=== PATIENT | male | born 1960 | race Caucasian/White ===

== ENCOUNTER → 2018-10-11 | Outpatient (CLI) | payer BC ==
[2018-10-11 11:51] LABS: INR 1.8 (0.8-1.4)
== END ==
LOC: LAB FS 10:56
PROVIDERS: ATTEND Pediatrics
DX: I48.0 Paroxysmal atrial fibrillation (principal)
CPT/HCPCS: 36415; 85610

== ENCOUNTER → 2018-10-31 | Outpatient (CLI) | payer BC ==
--- NOTE | 2018-10-31 10:40 | Diagnostic Imaging Report ---
INDICATION: Knee pain status post injury. COMPARISON: None. FINDINGS: Three views of the right knee joint demonstrate no acute fracture or dislocation. No focal osseous lesions are seen. No significant joint effusion is seen. The surrounding soft tissue structures are unremarkable. There are no radiopaque foreign bodies. IMPRESSION: No acute fractures or dislocations of the right knee joint. Dictated by: Dictated on workstation # [id number]
== END ==
LOC: RAD FS 10:07
PROVIDERS: ATTEND Nurse Practitioner
DX: S83.241A Other tear of medial meniscus, current injury, right knee, initial encounter (principal); Z87.828 Personal history of other (healed) physical injury and trauma
CPT/HCPCS: 73562

== ENCOUNTER → 2018-11-07 | Outpatient (CLI) | payer BC ==
--- NOTE | 2018-11-07 10:28 | Diagnostic Imaging Report ---
PROCEDURE: MRI right joint lower extremity without contrast. TECHNIQUE: Multiplanar, multisequence non contrast-enhanced MRI of the right lower extremity was accomplished. INDICATION: Knee popped while playing golf one week ago, complaining of medial pain and swelling. No prior studies are available for comparison. FINDINGS: There is a large joint effusion. The marrow signal is unremarkable. No geographic marrow lesion or fracture is identified. The PCL is intact. The proximal third fibers of the ACL are poorly visualized and appear to be torn. The medial and lateral collateral ligament complexes are intact. The lateral meniscus is intact. There is a complex tear involving the medial meniscus. Body and posterior horn demonstrate abnormal linear signal with significant truncation of the posterior horn. There may be a displaced fragment towards the notch as well. The extensor mechanism is intact. Articular cartilage appears to be intact. There is some mild subchondral signal noted along the posterior aspect of the medial femoral condyle. IMPRESSION: 1. Large joint effusion. 2. ACL tear. 3. Complex medial meniscus tear. Dictated by: Dictated on workstation # [id number]
== END ==
LOC: RAD 08:55
PROVIDERS: ATTEND Nurse Practitioner
DX: S83.231A Complex tear of medial meniscus, current injury, right knee, initial encounter (principal); S83.511A Sprain of anterior cruciate ligament of right knee, initial encounter; Y93.53 Activity, golf
CPT/HCPCS: 73721

== ENCOUNTER 2018-11-28 11:32 | Outpatient (CLI) | payer BC ==
[~2018-11-28] VITALS: Ht 177.8 cm; Wt 75.4 kg
[2018-11-28] MEDS ORDERED: WARF2.5T82 PO (11:52)
[2018-11-28] MEDS ORDERED: METO200T48 PO (11:52)
[2018-11-28] MEDS ORDERED: WARF1TAB82 PO (11:52)
[2018-11-28] MEDS ORDERED: AMLO10TA7 PO (11:52)
[2018-11-28] MEDS ORDERED: CAND32TA19 PO (11:52)
[2018-11-28] MEDS ORDERED: OMEP20TA7 PO (11:52)
[2018-11-28] MEDS ORDERED: TAMS0.4C98 PO (11:52)
[2018-11-28] MEDS ORDERED: DIGO250T PO (11:52)
[2018-11-28 11:55] VITALS: BP 129/93
== END 2018-11-28 12:29 | disposition home or self-care (01) ==
LOC: PREOP 11:32
PROVIDERS: ATTEND Orthopaedic Surgery
DX: Z01.818 Encounter for other preprocedural examination (principal)
CPT/HCPCS: 87081

== ENCOUNTER 2018-11-30 07:14 | Day surgery (SDC) | payer BC ==
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
[~2018-11-30] VITALS: Ht 177.8 cm; Wt 75.4 kg
[~2018-11-30 07:14] MED LIST: AMLO10TA7 PO; CAND32TA19 PO; DIGO250T PO; METO200T48 PO; OMEP20TA7 PO; TAMS0.4C98 PO; WARF1TAB82 PO; WARF2.5T82 PO
[2018-11-30] MEDS ORDERED: BUPIVACAINE 0.5% 30 ML (SENSORCAINE) VIAL ONE (07:23)
[2018-11-30] MEDS ORDERED: morphine PF (DURAMORPH) 10 MG/10 ML AMP ONE (07:23)
[2018-11-30 07:25] VITALS: BP 150/98
--- NOTE | 2018-11-30 07:31 | Progress Note-Pre Operative ---
Pre-Operative Progress Note H&P Reviewed The H&P was reviewed, patient examined and no changes noted. Date Seen by Provider: Nov 30, 2018 Time Seen by Provider: 07:30 Date H&P Reviewed: Nov 30, 2018 Time H&P Reviewed: 07:30 Pre-Operative Diagnosis: right knee medial meniscus tear and chondromalacia ADRIANNA MENJIVAR MD Nov 30, 2018 07:31
--- NOTE | 2018-11-30 07:32 | Progress Note-Post Operative ---
Post-Operative Progess Note Surgeon (s)/Insulator Helper (s) Surgeon ADRIANNA MENJIVAR MD Insulator Helper: Freeman Bernstein Pre-Operative Diagnosis right knee medial meniscus tear and chondromalacia Post-Operative Diagnosis right knee medial meniscus tear and chondromalacia of the medial femoral condyle Procedure & Operative Findings Date of Procedure 11/30/18 Procedure Performed/Findings right knee arthroscopic partial medial meniscectomy and chondroplasty of medial femoral condyle Anesthesia Type GETA Estimated Blood Loss Estimated blood loss (mL): minimal Specimens/Packing Specimens Removed none Packing: none ADRIANNA MENJIVAR MD Nov 30, 2018 07:31
[2018-11-30] MEDS ORDERED: LACTATED RINGERS 1,000 ML IV PRN (07:34)
[2018-11-30 07:45] LABS: INR 1.3 (0.8-1.4); PROTHROMBIN TIME PATIENT 16.6 SEC (12.2-14.7)
[2018-11-30] MEDS ORDERED: ceFAZolin INJECTION 1,000 MG in WATER (STERILE) FOR INJECTION 10 ML IV ONE (07:45)
[2018-11-30] MEDS ORDERED: fentaNYL INJECTION 100 MCG/2 ML AMP ONE (07:55)
[2018-11-30] MEDS ORDERED: MIDAZOLAM 2 MG/2 ML (VERSED) VIAL ONE ×2 (07:56→07:57)
[2018-11-30] MEDS ORDERED: proPOfol 200 MG/20 ML (DIPRIVAN) VIAL IV ONE ×2 (09:43→09:53)
[2018-11-30] MEDS ORDERED: LIDOCAINE PF 2% 5 ML (XYLOCAINE) VIAL ONE (09:43)
[2018-11-30] MEDS ORDERED: SEVOFLURANE (ULTANE) 15 ML INHAL SOLN ONE ×3 (09:43→10:12)
[2018-11-30] MEDS ORDERED: ONDANSETRON 4 MG/2 ML (SDV) Z0FRAN ONE (09:43)
[2018-11-30] MEDS ORDERED: HYDROcodone/APAP 7.5 MG/325 MG (LORTAB, LORCET PLUS) TABLET PO PRN (09:45)
[2018-11-30] MEDS ORDERED: ONDANSETRON 4 MG/2 ML (SDV) Z0FRAN IVP PRN (10:30)
[2018-11-30] MEDS ORDERED: MEPERIDINE (DEMEROL) INJ 50 MG/ML IVP ONE (10:30)
[2018-11-30] MEDS ORDERED: fentaNYL INJECTION 100 MCG/2 ML AMP IVP ONE (10:30)
[2018-11-30 11:10] VITALS: BP 147/94
[2018-11-30] MEDS ORDERED: HYDR-3816 PO (11:19)
[2018-11-30 11:40] VITALS: BP 143/95
--- NOTE | 2018-11-30 11:42 | Anesthesia-General Post-Op ---
General Patient Condition Mental Status/LOC: Same as Preop Cardiovascular: Satisfactory Nausea/Vomiting: Absent Respiratory: Satisfactory Pain: Controlled Complications: Absent Post Op Complications Complications None Follow Up Care/Instructions Patient Instructions None needed. Anesthesia/Patient Condition Patient Condition Patient is doing well, no complaints, stable vital signs, no apparent adverse anesthesia problems. No complications reported per nursing. D/C home per [facility] Criteria: Yes HELGA ROJAS CRNA Nov 30, 2018 11:42
--- NOTE | 2018-11-30 13:01 | Physical Therapy Ortho Eval ---
PT Orthopedic Evaluation Type of Surgery Knee Scope right side Prior Level of Function Current Living Status: Spouse Locomotion (Upon Admit): Independent Subjective Subjective Patient sitting on EOB pre tx, agrees to PT, has no complaints of pain in his knee but states that his right hip has 8/10 pain on the anterior side. Entry Into Home: Stairs With Railing Steps Into Home: 2 Motor Control Motor Control: Motor Control WNL ROM right knee flexion 95 degrees, extension 0 degrees Strength NT Transfer Transfers (B, C, W/C) (FIM): 5 Gait Gait Assistive Device: FWW Right Lower Extremity: Right Weight Bearing Status RLE: Weight Bearing/Tolerated Gait (FIM): 5 Distance: 200' Gait Level of Assist: 5 Summary/Comments Patient ambulated 200' with a rolling walker with SBA, antalgic gait due to right hip pain. Patient also went up and down 1 step using a rolling walker with SBA and cues for foot placement. Treatment Rendered Treatment: Therapeutic Exercises, Gait Train, Step Train Exercise Instruction: Quad Sets, Heel Slides, Ankle Pumps Assessment/Goals Goal Time Frame: 1 Visit Plan Treatment Plan: Discharge PT/Family Agrees to Plan: Yes Time Time In: 1140 Time Out: 1150 Total Billed Treatment Time: 10 Billed Treatment Time 1 visit YOLANDA Quesada' OLI FIELDS PT Nov 30, 2018 13:01
--- NOTE | 2018-11-30 14:16 | OPERATIVE REPORT ---
DATE OF SERVICE: 11/30/2018 PREOPERATIVE DIAGNOSIS: Right knee medial meniscus tear. POSTOPERATIVE DIAGNOSES: 1. Right knee medial meniscus tear. 2. Right knee chondromalacia of the medial femoral condyle. PROCEDURES: 1. Right knee arthroscopic partial medial meniscectomy. 2. Right knee arthroscopic chondroplasty of the medial femoral condyle. SURGEON: Arnaldo Menjivar MD LITIGATION PARTNER: Freeman Bernstein, who assisted throughout the procedure and closed the incisions. ANESTHESIA: General endotracheal. TOURNIQUET TIME: Not applicable. ESTIMATED BLOOD LOSS: Minimal. DRAINS: None. COMPLICATIONS: None. POSTOPERATIVE PLAN: Routine arthroscopy protocol. The patient was transported to the recovery room awake and in stable condition. STATEMENT OF MEDICAL NECESSITY: The patient is a 58-year-old gentleman who has had known ACL deficiency for several years, but injured his right knee while twisting. He felt and heard a pop. An MRI revealed a medial meniscus tear. The patient was counseled regarding treatment options and elected to proceed with partial medial meniscectomy, but did not desire ACL reconstruction currently. He understood that he was at risk of continued feelings of instability. Examination under anesthesia revealed range of motion of 0/0/140 with 1+ Demetra, 1+ anterior drawer and a positive pivot glide. No varus valgus laxity and negative posterior drawer. Arthroscopic findings, the patella demonstrated no gross chondral abnormalities. The medial and lateral gutters were clear. The trochlea demonstrated no gross chondral abnormalities. The ACL was completely disrupted from its femoral attachment. The PCL was intact. The lateral compartment demonstrated no significant meniscal or chondral pathology. The medial compartment demonstrated a bucket handle tear of the posterior horn and body of the medial meniscus involving approximately two-thirds of the posterior horn and body. In addition, there were grade II chondral flaps and central portion of the femoral condyle in a 15 x 20 area. DESCRIPTION OF PROCEDURE: After risks and benefits of the procedure were discussed and questions were answered, an informed consent was signed and placed on chart. The operative site was confirmed in the preoperative holding area and initialed by the surgeon. The patient was transferred to the operating room and after adequate level of general endotracheal anesthetic were obtained, a timeout was called confirming the operative site. Examination under anesthesia was performed with the above findings noted. The right lower extremity was prepped and draped in the usual sterile fashion. The knee joint was injected with 60 mL of fluid and standard inferolateral portals were placed with the arthroscope under direct visualization. Inferior medial portal was created. The menisci and cruciates were carefully probed with the above findings noted. The unstable chondral flaps of the medial femoral condyle were debrided with shaver back to a stable edge. The posterior horn and body of the medial meniscus were resected with a shaver and a biter leaving approximately one-third of the posterior horn and body. This was carefully probed with no further tearing or instability noted. The knee was copiously irrigated and portal sites closed with 4-0 nylon in simple interrupted fashion. The knee was injected with Duramorph. Portal sites were infiltrated with plain Marcaine. A soft dressing was applied. The patient was transported to the recovery room awake and in stable condition. Job ID: [id number] DocumentID: [id number] Dictated Date: 11/30/2018 10:28:08 Cellophane Bag Machine Operator Date: 11/30/2018 14:16:07 Dictated By: ARNALDO MENJIVAR MD
== END 2018-11-30 11:50 | disposition home or self-care (01) ==
LOC: SDC 07:14
PROVIDERS: ATTEND Orthopaedic Surgery
DX: S83.211A Bucket-handle tear of medial meniscus, current injury, right knee, initial encounter (principal); M94.261 Chondromalacia, right knee; I48.91 Unspecified atrial fibrillation; I10 Essential (primary) hypertension; I42.9 Cardiomyopathy, unspecified; K21.9 Gastro-esophageal reflux disease without esophagitis; F17.220 Nicotine dependence, chewing tobacco, uncomplicated; Z79.01 Long term (current) use of anticoagulants; Z79.899 Other long term (current) drug therapy; X50.1XXA Overexertion from prolonged static or awkward postures, initial encounter
CPT/HCPCS: 36415; 85610

== ENCOUNTER 2019-05-22 13:31 | Outpatient (RCR) | payer BC ==
[2019-03-07 14:45] LABS: INR 2.5 (0.8-1.4)
[~2019-05-22 13:31] MED LIST changes: -DIGO250T PO; +DIGO250T3 PO; +HYDR-3816 PO; -TAMS0.4C98 PO; +TMSL.4C PO
[2019-05-22 14:16] LABS: PROTHROMBIN TIME PATIENT 32.7 SEC (12.2-14.7)
== END 2019-06-05 | disposition home or self-care (01) ==
LOC: LAB FS 13:31
PROVIDERS: ATTEND Pediatrics
DX: I48.0 Paroxysmal atrial fibrillation (principal)
CPT/HCPCS: 36415; 85610

== ENCOUNTER 2019-09-07 12:19 | Outpatient (RCR) | payer BC ==
[2019-08-21 16:20] LABS: INR 4.7 (0.8-1.4)
[2019-08-21 16:21] LABS: PROTHROMBIN TIME PATIENT 46.6 SEC (12.2-14.7)
[2019-08-24 12:33] LABS: INR 2.2 (0.8-1.4)
[2019-08-29 10:10] LABS: INR 1.8 (0.8-1.4); PROTHROMBIN TIME PATIENT 21.8 SEC (12.2-14.7)
[~2019-09-07 12:19] MED LIST changes: +HYDR-34 PO; -HYDR-3816 PO
[2019-09-07 12:45] LABS: INR 2.2 (0.8-1.4); PROTHROMBIN TIME PATIENT 25.3 SEC (12.2-14.7)
== END 2019-11-19 | disposition home or self-care (01) ==
LOC: LAB FS 12:19
PROVIDERS: ATTEND Pediatrics
DX: I48.0 Paroxysmal atrial fibrillation (principal)
CPT/HCPCS: 36415; 85610

== ENCOUNTER 2020-04-11 00:35 | Emergency (ER) | payer BC ==
[~2020-04-11] VITALS: Ht 177 cm; Wt 80.0 kg
[2020-04-11] MEDS: RT-ALBUTEROL/IPRATROPIUM 3 ML (DUONEB) VIAL INH ONE (00:57)
[2020-04-11 01:04] LABS: HEMOGLOBIN 13.5 G/DL (13.3-17.7); MEAN CORPUSCULAR HEMOGLOBIN 30 PG (25-34); WHITE BLOOD COUNT 4.7 10^3/uL (4.3-11.0)
[2020-04-11 01:05] LABS: BASOPHILS % (AUTO) 0 % (0-10); EOSINOPHILS % (AUTO) 1 % (0-10); HEMATOCRIT 39 % (40-54); LYMPHOCYTES # (AUTO) 2.1 X 10^3 (1.0-4.0); LYMPHOCYTES % (AUTO) 45 % (12-44); MEAN CORPUSCULAR HGB CONC 34 G/DL (32-36); MEAN CORPUSCULAR VOLUME 87 FL (80-99); MEAN PLATELET VOLUME 9.4 FL (7.4-10.4); MONOCYTES # (AUTO) 0.6 X 10^3 (0.0-1.0); MONOCYTES % (AUTO) 13 % (0-12); NEUTROPHILS # (AUTO) 1.9 X 10^3 (1.8-7.8); NEUTROPHILS % (AUTO) 41 % (42-75); PLATELET COUNT 142 10^3/uL (130-400)
[2020-04-11 01:32] LABS: CHLORIDE 89 MMOL/L (98-107); POTASSIUM 4.1 MMOL/L (3.6-5.0); SODIUM 129 MMOL/L (135-145)
[2020-04-11 01:33] LABS: ALANINE AMINOTRANSFERASE 103 U/L (0-55); ALBUMIN 4.9 GM/DL (3.2-4.5); ALKALINE PHOSPHATASE 127 U/L (40-136); BILIRUBIN,TOTAL 0.7 MG/DL (0.1-1.0); BUN/CREATININE RATIO 11; CALCIUM 9.9 MG/DL (8.5-10.1); CARBON DIOXIDE 22 MMOL/L (21-32); CREATININE SERUM 0.75 MG/DL (0.60-1.30); GFR ESTIMATED > 60; GLUCOSE 95 MG/DL (70-105); MAGNESIUM 1.8 MG/DL (1.6-2.4); TOTAL PROTEIN 8.3 GM/DL (6.4-8.2)
[2020-04-11] MEDS ORDERED: NS IV 1000 ML 1,000 ML IV STA (01:36)
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
[2020-04-11 02:00] VITALS: BP 144/97
[2020-04-11 02:13] LABS: INR 1.7 (0.8-1.4)
--- NOTE | 2020-04-11 07:51 | Diagnostic Imaging Report ---
INDICATION: Short of breath. Cough COMPARISON: None FINDINGS: Single frontal view of the chest demonstrates normal heart size and pulmonary vascularity. The lungs are well aerated and clear. No large pleural effusion or pneumothorax is seen. The visualized osseous structures show no acute abnormalities. IMPRESSION: 1. No acute cardiopulmonary process. Dictated by: Dictated on workstation # [id number]
== END 2020-04-11 02:00 | disposition home or self-care (01) ==
LOC: EDUNIT# 00:35 → ER FS 00:38
DX: R06.00 Dyspnea, unspecified (principal); R09.81 Nasal congestion; R05 Cough; E86.0 Dehydration; I11.9 Hypertensive heart disease without heart failure; I42.9 Cardiomyopathy, unspecified; K21.9 Gastro-esophageal reflux disease without esophagitis; I48.91 Unspecified atrial fibrillation; Z88.5 Allergy status to narcotic agent; Z79.01 Long term (current) use of anticoagulants; Z86.73 Personal history of transient ischemic attack (TIA), and cerebral infarction without residual deficits
CPT/HCPCS: 36415; 71045; 80053; 83605; 83735; 83880; 84484; 85025; 85610; 85730; 86141

== ENCOUNTER 2020-07-30 13:17 | Emergency (ER) | payer BC ==
[~2020-07-30] VITALS: Ht 177.8 cm; Wt 73.4 kg
[~2020-07-30 13:17] MED LIST changes: +AMLO-251 PO; -AMLO10TA7 PO; -WARF1TAB82 PO; -WARF2.5T82 PO; +WRF1T PO; +WRF2.5T PO
[2020-07-30 13:20] VITALS: BP 147/100
--- NOTE | 2020-07-30 13:44 | ED Abdominal Pain ---
General Chief Complaint: Abdominal/GI Problems Stated Complaint: ABD PAIN History of Present Illness Date Seen by Provider: Jul 30, 2020 Time Seen by Provider: 13:35 Initial Comments 59-year-old male with past medical history significant for pancreatitis presents with abdominal pain which has been present for the last 4 weeks. Recently admitted to the [facility] on Wednesday, 26 July and discharged this morning by Dr. Pierre. Patient states that he wasn't feeling any better, cannot tolerate eating or drinking" thinks or something else wrong". Allergies and Home Medications Allergies Coded Allergies: oxycodone (Verified Allergy, Severe, BECAME SUICIDAL, 11/28/18) Home Medications Amlodipine Besylate 10 Mg Tablet, 10 MG PO DAILY, (Reported) Candesartan Cilexetil 32 Mg Tablet, 32 MG PO DAILY, (Reported) Digoxin 250 Mcg Tablet, 250 MCG PO DAILY, (Reported) Hydrocodone Bit/Acetaminophen 1 Each Tablet, 1 TAB PO Q4H Prescribed by: ASHLEY GARCIA on 11/30/18 1119 Metoprolol Succinate 200 Mg Tab.er.24h, 200 MG PO BID, (Reported) Omeprazole 20 Mg Tablet.dr, 20 MG PO DAILY, (Reported) Tamsulosin HCl 0.4 Mg Cap, 0.4 MG PO DAILY, (Reported) Warfarin Sodium 2.5 Mg Tablet, 2.5 MG PO DAILY, (Reported) Warfarin Sodium 1 Mg Tablet, 1 MG PO DAILY, (Reported) Patient Home Medication List Home Medication List Reviewed: Yes Review of Systems Review of Systems Constitutional: see HPI; No chills, No fever; malaise; No weakness EENTM: No Symptoms Reported Respiratory: Denies Cough, Denies Shortness of Air Cardiovascular: Denies Chest Pain, Denies Edema, Denies Palpitations, Denies Syncope Gastrointestinal: See HPI, Abdominal Pain; Denies Diarrhea; Nausea, Poor Appetite; Denies Vomiting Musculoskeletal: No back pain, No joint pain Skin: No change in color, No rash Past Nnxdwsw-Jfjtnh-Vtimnn Hx Past Med/Social Hx: Reviewed Nursing Past Med/Soc Hx Patient Social History Alcohol Use: Past History Number of Drinks Today: AA Alcohol Beverage of Choice: Beer Recreational Drug Use: No Smoking Status: Former Smoker Type Used: Cigarettes, Smokeless Tobacco 2nd Hand Smoke Exposure: No Recent Foreign Travel: No Contact w/Someone Who Travel: No Recent Hopitalizations: No Physical Abuse: No Sexual Abuse: No Mistreated: No Fear: No Seasonal Allergies Seasonal Allergies: Yes Past Medical History Surgeries: Yes (SHOULDER, TOO INGUINAL HERNIA, CARDIAC ABLATION, ) Gallbladder Respiratory: No Cardiac: Yes Atrial Fibrillation, Cardiomyopathy, Hypertension Neurological: Yes TIA Sexually Transmitted Disease: No HIV/AIDS: No Genitourinary: No Gastrointestinal: Yes Gastroesophageal Reflux Musculoskeletal: No Endocrine: No HEENT: Yes (READING GLASSES) Loss of Vision: Bilateral Hearing Impairment: Denies Cancer: No Psychosocial: No Integumentary: No Blood Disorders: No Adverse Reaction/Blood Tranf: No (N/A) Physical Exam Vital Signs Vital Signs - First Documented 07/30/20 13:20 Temp 36.0 Pulse 86 Resp 16 B/P (MAP) 147/100 (116) Pulse Ox 96 O2 Delivery Room Air Capillary Refill : Height/Weight/BMI Height: 5'10.00" Weight: 166lbs. 4.0oz. 75.537252bf; 25.00 BMI Method: General Appearance: WD/WN, no apparent distress HEENT: PERRL/EOMI, normal ENT inspection Neck: supple, normal inspection Respiratory: chest non-tender, lungs clear, normal breath sounds, no respiratory distress, no accessory muscle use Cardiovascular: regular rate, rhythm, no edema, no JVD Gastrointestinal: soft, no organomegaly, no pulsatile mass, distended, guarding; No rebound; tenderness (diffuse epigastric TTP) Extremities: non-tender, normal inspection, no pedal edema Back: normal inspection, no CVA tenderness, no vertebral tenderness Neurologic/Psychiatric: no motor/sensory deficits, alert, normal mood/affect Skin: normal color, warm/dry Focused Exam Lactate Level 07/30/20 13:53: Lactic Acid Level 1.27 Lactic Acid Level Laboratory Tests Test 07/30/20 13:53 Lactic Acid Level 1.27 MMOL/L (0.50-2.00) Progress/Results/Core Measures Results/Orders Lab Results Laboratory Tests Test 07/30/20 13:28 07/30/20 13:53 07/30/20 14:24 Range/Units White Blood Count 9.6 4.3-11.0 10^3/uL Red Blood Count 4.20 L 4.35-5.85 10^6/uL Hemoglobin 12.6 L 13.3-17.7 G/DL Hematocrit 37 L 40-54 % Mean Corpuscular Volume 87 80-99 FL Mean Corpuscular Hemoglobin 30 25-34 PG Mean Corpuscular Hemoglobin Concent 34 32-36 G/DL Red Cell Distribution Width 13.7 10.0-14.5 % Platelet Count 290 130-400 10^3/uL Mean Platelet Volume 9.4 7.4-10.4 FL Immature Granulocyte % (Auto) 0 % Neutrophils (%) (Auto) 83 H 42-75 % Lymphocytes (%) (Auto) 9 L 12-44 % Monocytes (%) (Auto) 8 0-12 % Eosinophils (%) (Auto) 0 0-10 % Basophils (%) (Auto) 0 0-10 % Neutrophils # (Auto) 7.9 H 1.8-7.8 X 10^3 Lymphocytes # (Auto) 0.8 L 1.0-4.0 X 10^3 Monocytes # (Auto) 0.8 0.0-1.0 X 10^3 Eosinophils # (Auto) 0.0 0.0-0.3 10^3/uL Basophils # (Auto) 0.0 0.0-0.1 10^3/uL Immature Granulocyte # (Auto) 0.0 0.0-0.1 10^3/uL Sodium Level 133 L 135-145 MMOL/L Potassium Level 3.4 L 3.6-5.0 MMOL/L Chloride Level 92 L 98-107 MMOL/L Carbon Dioxide Level 27 21-32 MMOL/L Anion Gap 14 5-14 MMOL/L Blood Urea Nitrogen 4 L 7-18 MG/DL Creatinine 0.56 L 0.60-1.30 MG/DL Estimat Glomerular Filtration Rate > 60 BUN/Creatinine Ratio 7 Glucose Level 121 H 70-105 MG/DL Calcium Level 9.7 8.5-10.1 MG/DL Corrected Calcium 10.0 8.5-10.1 MG/DL Total Bilirubin 1.2 H 0.1-1.0 MG/DL Aspartate Amino Transf (AST/SGOT) 29 5-34 U/L Alanine Aminotransferase (ALT/SGPT) 41 0-55 U/L Alkaline Phosphatase 263 H 40-136 U/L Troponin I < 0.30 <0.30 NG/ML Total Protein 7.4 6.4-8.2 GM/DL Albumin 3.6 3.2-4.5 GM/DL Lipase 15 8-78 U/L Serum Alcohol < 10 <10 MG/DL Lactic Acid Level 1.27 0.50-2.00 MMOL/L Urine Opiates Screen NEGATIVE NEGATIVE Urine Oxycodone Screen NEGATIVE NEGATIVE Urine Methadone Screen NEGATIVE NEGATIVE Urine Propoxyphene Screen NEGATIVE NEGATIVE Urine Barbiturates Screen NEGATIVE NEGATIVE Ur Tricyclic Antidepressants Screen NEGATIVE NEGATIVE Urine Phencyclidine Screen NEGATIVE NEGATIVE Urine Amphetamines Screen NEGATIVE NEGATIVE Urine Methamphetamines Screen POSITIVE H NEGATIVE Urine Benzodiazepines Screen POSITIVE H NEGATIVE Urine Cocaine Screen NEGATIVE NEGATIVE Urine Cannabinoids Screen NEGATIVE NEGATIVE My Orders Orders - KATIE SAXENA DO Ed Iv/Invasive Line Start (07/30/20 13:40) Cbc With Automated Diff (07/30/20 13:40) Comprehensive Metabolic Panel (07/30/20 13:40) Alcohol (07/30/20 13:40) Lactic Acid Analyzer (07/30/20 13:40) Lipase (07/30/20 13:40) Drug Screen Stat (Urine) (07/30/20 13:40) Troponin I Fs (07/30/20 13:40) Ondansetron Injection (Zofran Injectio (07/30/20 13:45) Fentanyl Injection (Sublimaze Injection (07/30/20 13:45) Medications Given in ED Current Medications Medications Dose Ordered Sig/Lali Route Start Time Stop Time Status Last Admin Dose Admin Fentanyl Citrate 50 mcg ONCE ONCE IVP 07/30/20 13:45 07/30/20 13:46 DC 07/30/20 13:55 50 MCG Ondansetron HCl 4 mg ONCE ONCE IVP 07/30/20 13:45 07/30/20 13:46 DC 07/30/20 13:54 4 MG Vital Signs/I&O 07/30/20 13:20 Temp 36.0 Pulse 86 Resp 16 B/P (MAP) 147/100 (116) Pulse Ox 96 O2 Delivery Room Air Progress Progress Note : Progress Note Called Dr. Pierre to discuss patient presentation as well as to ask questions about his recent admission. Patient never had significant elevation of his lipase, presumed pancreatic type pain 2 to several abnormalities of his CT scan. Also had a normal upper GI endoscopy by Dr. Pierre just a couple days ago. Prescriptions were written for outpatient management of his epigastric abdominal pain. Dr. Pierre will work on referral to gastroenterology to consider an ERCP. Reassurance given the patient, advised clear liquid diet until his symptoms are improving. Patient minutes has not had regular bowel movements and explained this was likely due to getting IV narcotics for the past several days well in the hospital. Patient advised to take magnesium citrate for the next 2 days to help his bowels start moving. Advised follow-up with the ER if symptoms progress. Departure Impression Primary Impression: Abdominal pain Qualified Codes: R10.13 - Epigastric pain Disposition: HOME, SELF-CARE Condition: Stable Departure-Patient Inst. Decision time for Depature: 15:09 Referrals: YAHAIRA PIERRE MD (PCP/Family) Primary Care Physician Patient Instructions: CLEAR LIQUID DIET ADULT/CHILD, Severe Abdominal Pain, Adult (DC) Add. Discharge Instructions: Take a half bottle of "magnesium citrate" mixed with some sprite or 7-up today and repeat tomorrow if you have not been successful getting your bowels to move. Follow your instructions given to you by Dr Pierre regarding your medications and follow up planned for a GI doctor. All discharge instructions reviewed with patient and/or family. Voiced understanding. KATIE SAXENA DO Jul 30, 2020 13:44
[2020-07-30] MEDS ORDERED: fentaNYL INJECTION 100 MCG/2 ML AMP IVP ONE (13:45)
[2020-07-30] MEDS ORDERED: ONDANSETRON 4 MG/2 ML (SDV) Z0FRAN IVP ONE (13:45)
[2020-07-30 14:08] LABS: HEMATOCRIT 37 % (40-54); HEMOGLOBIN 12.6 G/DL (13.3-17.7); MEAN CORPUSCULAR HEMOGLOBIN 30 PG (25-34); MEAN CORPUSCULAR HGB CONC 34 G/DL (32-36); MEAN CORPUSCULAR VOLUME 87 FL (80-99); MEAN PLATELET VOLUME 9.4 FL (7.4-10.4); PLATELET COUNT 290 10^3/uL (130-400); WHITE BLOOD COUNT 9.6 10^3/uL (4.3-11.0)
[2020-07-30 14:09] LABS: BASOPHILS % (AUTO) 0 % (0-10); EOSINOPHILS % (AUTO) 0 % (0-10); LYMPHOCYTES # (AUTO) 0.8 X 10^3 (1.0-4.0); LYMPHOCYTES % (AUTO) 9 % (12-44); MONOCYTES # (AUTO) 0.8 X 10^3 (0.0-1.0); MONOCYTES % (AUTO) 8 % (0-12); NEUTROPHILS # (AUTO) 7.9 X 10^3 (1.8-7.8); NEUTROPHILS % (AUTO) 83 % (42-75)
[2020-07-30 14:26] LABS: BUN/CREATININE RATIO 7; CARBON DIOXIDE 27 MMOL/L (21-32); CHLORIDE 92 MMOL/L (98-107); CREATININE SERUM 0.56 MG/DL (0.60-1.30); GFR ESTIMATED > 60; POTASSIUM 3.4 MMOL/L (3.6-5.0); SODIUM 133 MMOL/L (135-145)
[2020-07-30 14:27] LABS: ALANINE AMINOTRANSFERASE 41 U/L (0-55); ALBUMIN 3.6 GM/DL (3.2-4.5); ALKALINE PHOSPHATASE 263 U/L (40-136); BILIRUBIN,TOTAL 1.2 MG/DL (0.1-1.0); CALCIUM 9.7 MG/DL (8.5-10.1); GLUCOSE 121 MG/DL (70-105); TOTAL PROTEIN 7.4 GM/DL (6.4-8.2)
[2020-07-30 14:28] LABS: LIPASE 15 U/L (8-78)
[2020-07-30 15:16] LABS: AMPHETAMINE SCREEN, URINE NEGATIVE (NEGATIVE); BARBITURATE SCREEN URINE NEGATIVE (NEGATIVE); BENZODIAZEPINES SCREEN URINE POSITIVE (NEGATIVE); CANNABINOID SCREEN, URINE NEGATIVE (NEGATIVE); COCAINE SCREEN URINE NEGATIVE (NEGATIVE); METHADONE STAT NEGATIVE (NEGATIVE); METHAMPHETAMINE SCREEN URINE S POSITIVE (NEGATIVE); OPIATE SCREEN URINE NEGATIVE (NEGATIVE); OXYCODONE STAT NEGATIVE (NEGATIVE); PROPOXYPHENE STAT NEGATIVE (NEGATIVE); TRICYCLIC ANTIDEPRESSANTS SCRE NEGATIVE (NEGATIVE)
== END 2020-07-30 15:18 | disposition home or self-care (01) ==
LOC: EDUNIT# 13:17 → ER FS 13:19
DX: R10.13 Epigastric pain (principal); I10 Essential (primary) hypertension; K21.9 Gastro-esophageal reflux disease without esophagitis; I48.91 Unspecified atrial fibrillation; Z87.891 Personal history of nicotine dependence; Z87.19 Personal history of other diseases of the digestive system; Z86.73 Personal history of transient ischemic attack (TIA), and cerebral infarction without residual deficits; Z88.5 Allergy status to narcotic agent; Z79.01 Long term (current) use of anticoagulants
CPT/HCPCS: 36415; 80053; 80306; 83605; 83690; 84484; 85025; 99284; G0480; 80320

== ENCOUNTER 2021-12-12 18:19 | Inpatient (IN) | payer BC ==
[~2021-12-12] VITALS: Ht 177.8 cm; Wt 83.3 kg
[~2021-12-12 18:19] MED LIST changes: +OMEP20TA56 PO; -OMEP20TA7 PO
[2021-12-12] MEDS ORDERED: RT-ALBUTEROL/IPRATROPIUM 3 ML (DUONEB) VIAL ONE (18:25)
[2021-12-12] MEDS ORDERED: RT-ALBUTEROL/IPRATROPIUM 3 ML (DUONEB) VIAL INH ONE (18:30)
[2021-12-12 18:35] LABS: BASOPHILS % (AUTO) 0 % (0-10); EOSINOPHILS # (AUTO) 0.1 10^3/uL (0.0-0.3); EOSINOPHILS % (AUTO) 1 % (0-10); HEMATOCRIT 38 % (40-54); HEMOGLOBIN 12.7 g/dL (13.3-17.7); LYMPHOCYTES # (AUTO) 1.2 10^3/uL (1.0-4.0); LYMPHOCYTES % (AUTO) 13 % (12-44); MEAN CORPUSCULAR HEMOGLOBIN 28 pg (25-34); MEAN CORPUSCULAR HGB CONC 34 g/dL (32-36); MEAN CORPUSCULAR VOLUME 83 fL (80-99); MEAN PLATELET VOLUME 9.7 fL (9.0-12.2); MONOCYTES # (AUTO) 0.6 10^3/uL (0.0-1.0); MONOCYTES % (AUTO) 6 % (0-12); NEUTROPHILS # (AUTO) 7.7 10^3/uL (1.8-7.8); NEUTROPHILS % (AUTO) 80 % (42-75); PLATELET COUNT 196 10^3/uL (130-400); WHITE BLOOD COUNT 9.7 10^3/uL (4.3-11.0)
[2021-12-12] MEDS ORDERED: RT-ALBUTEROL SULF 2.5 MG/3 ML PRE-MIX VIAL INH STA (18:40)
--- NOTE | 2021-12-12 18:51 | Diagnostic Imaging Report ---
INDICATION: Cough, shortness of breath, hypoxia. TECHNIQUE: Single view chest 6:39 PM. CORRELATION STUDY: 04/11/2020 FINDINGS: Patchy infiltrate right lung base compatible with right basilar pneumonia. Left lung clear. Heart size enlarged. Mediastinum mildly prominent, likely accentuated by technique. IMPRESSION: 1. Right basilar pneumonia. Follow-up imaging to resolution is recommended. Dictated by: Dictated on workstation # [id number]
[2021-12-12 19:00] LABS: BILIRUBIN,TOTAL 0.6 MG/DL (0.1-1.0); CALCIUM 9.5 MG/DL (8.5-10.1); CARBON DIOXIDE 27 MMOL/L (21-32); CHLORIDE 93 MMOL/L (98-107); GLUCOSE 114 MG/DL (70-105); POTASSIUM 3.4 MMOL/L (3.6-5.0); SODIUM 132 MMOL/L (135-145)
[2021-12-12 19:01] LABS: ALANINE AMINOTRANSFERASE 13 U/L (0-55); ALBUMIN 4.6 GM/DL (3.2-4.5); ALKALINE PHOSPHATASE 111 U/L (40-136); TOTAL PROTEIN 8.2 GM/DL (6.4-8.2)
[2021-12-12 19:02] LABS: BUN/CREATININE RATIO 8; CREATININE SERUM 0.77 MG/DL (0.60-1.30); GFR ESTIMATED 103
--- NOTE | 2021-12-12 19:24 | ED General ---
General Chief Complaint: Respiratory Problems Stated Complaint: CP,SOB Nursing Triage Note: CHEST PAIN, SHORTNESS OF BREATH AND A COUGH FOR A COUPLE OF DAYS. Source of Information: Patient, Family Exam Limitations: No Limitations History of Present Illness Date Seen by Provider: Dec 12, 2021 Time Seen by Provider: 18:25 Initial Comments Arrives in extremis with shortness of breath and O2 saturations in the upper 60s. Patient has had cough and chills at home worsening over the last few days and today was markedly worse. Not normally on oxygen. States he feels cold currently. Reports O2 saturation in the low 70s at home when they decided to come to the emergency department. Does have history of COVID infection in July of last year. Denies being around anybody ill currently. He has had 1 dose of vaccine but that was prior to his infection for COVID. It appears to be the single dose vaccine. Denies nausea, vomiting or diarrhea. Does report that he has shortness of breath and tightness in the chest and is wheezing quite a bit. Does have history of atrial fibrillation and does take warfarin for this. States he has not missed any dosing. Timing/Duration: 3-4 Days, Getting Worse Severity: Severe Modifying Factors: improves with Rest Associated Systoms: Cough, Fever/Chills; No Headaches, No Nausea/Vomiting; Shortness of Air, Weakness Allergies and Home Medications Allergies Coded Allergies: oxycodone (Verified Allergy, Severe, BECAME SUICIDAL, 11/28/18) Patient Home Medication List Home Medication List Reviewed: Yes Amlodipine Besylate (Amlodipine Besylate) 10 Mg Tablet, 10 MG PO DAILY, (Reported) Entered as Reported by: KEVIN CARBALLO on 11/28/18 115 Candesartan Cilexetil (Atacand) 32 Mg Tablet, 32 MG PO DAILY, (Reported) Entered as Reported by: KEVIN CARBALLO on 11/28/18 1152 Digoxin (Digoxin) 250 Mcg Tablet, 250 MCG PO DAILY, (Reported) Entered as Reported by: KEVIN CARBALLO on 11/28/18 1152 Hydrocodone Bit/Acetaminophen (HYDROcodone/APAP 7.5/325 TAB) 1 Each Tablet, 1 TAB PO Q4H Prescribed by: ASHLEY GARCIA on 11/30/18 1119 Metoprolol Succinate (Metoprolol Succinate) 200 Mg Tab.er.24h, 200 MG PO BID, (Reported) Entered as Reported by: KEVIN CARBALLO on 11/28/18 115 Omeprazole (Omeprazole) 20 Mg Tablet.dr, 20 MG PO DAILY, (Reported) Entered as Reported by: KEVIN CARBALLO on 11/28/18 115 Tamsulosin HCl (Flomax) 0.4 Mg Cap, 0.4 MG PO DAILY, (Reported) Entered as Reported by: KEVIN CARBALLO on 11/28/18 115 Warfarin Sodium (Warfarin Sodium) 2.5 Mg Tablet, 2.5 MG PO DAILY, (Reported) Entered as Reported by: KEVIN CARBALLO on 11/28/18 115 Warfarin Sodium (Warfarin Sodium) 1 Mg Tablet, 1 MG PO DAILY, (Reported) Entered as Reported by: KEVIN CARBALLO on 11/28/18 115 Review of Systems Review of Systems Constitutional: chills; No fever; weakness EENTM: nose congestion; No throat pain Respiratory: cough, dyspnea on exertion, short of breath, wheezing Cardiovascular: No chest pain, No palpitations Gastrointestinal: No nausea, No vomiting Genitourinary: no symptoms reported Musculoskeletal: No muscle pain; muscle weakness Skin: No change in color, No lesions Psychiatric/Neurological: Denies Headache, Denies Paresthesia; Weakness All Other Systems Reviewed Negative Unless Noted: Yes Past Osyhsip-Yeonun-Qlpfjo Hx Patient Social History Tobacco Use?: Yes Smokeless Tobacco Frequency: Current Everyday User Use of E-Cig and/or Vaping dev: No Substance use?: No Alcohol Use?: Yes Alcohol type: Beer Alcohol Frequency: Daily Pt feels they are or have been: No Immunizations Up To Date First/Initial COVID19 Vaccinat: 2020 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: [employer] Seasonal Allergies Seasonal Allergies: Yes Past Medical History Surgeries: Yes (SHOULDER, TOO INGUINAL HERNIA, CARDIAC ABLATION, ) Gallbladder Respiratory: No Cardiac: Yes Atrial Fibrillation, Cardiomyopathy, Hypertension Neurological: Yes TIA Sexually Transmitted Disease: No HIV/AIDS: No Genitourinary: No Gastrointestinal: Yes Gastroesophageal Reflux Musculoskeletal: No Endocrine: No HEENT: Yes (READING GLASSES) Loss of Vision: Bilateral Hearing Impairment: Denies Cancer: No Psychosocial: No Integumentary: No Blood Disorders: No Adverse Reaction/Blood Tranf: No (N/A) Family Medical History Reviewed Nursing Family Hx Physical Exam-Suspected Sepsis Physical Exam Vital Signs Vital Signs - First Documented 12/12/21 12/12/21 18:20 18:33 Temp 37.2 Pulse 68 Resp 18 B/P (MAP) 142/75 (97) Pulse Ox 67 O2 Delivery Room Air O2 Flow Rate 12.00 FiO2 90 Capillary Refill : Less Than 3 Seconds Blood Pressure Mean: 105 Height, Weight, BMI Height: 5'10.00" Weight: 166lbs. 4.0oz. 75.001794ci; 23.00 BMI Method: General Appearance: Moderate Distress (Respiratory), Thin HEENT: PERRL/EOMI, Pharyngeal Erythema Neck: Non Tender, Supple Respiratory: Decreased Breath Sounds (Tight sounding), Wheezing (Throughout) Cardiovascular: No Murmur, Irregularly Irregular Gastrointestinal: Non Tender, Soft Back: Normal Inspection, No CVA Tenderness, No Vertebral Tenderness Extremity: Normal Range of Motion, Non Tender, No Calf Tenderness, No Pedal Edema Neurologic/Psychiatric: Alert, Oriented x3 Skin: normal color, warm/dry Focused Exam Lactate Level 12/12/21 18:29: Lactic Acid Level 2.15*H 12/12/21 21:37: Lactic Acid Level 1.75 Lactic Acid Level Laboratory Tests Test 12/12/21 21:37 Lactic Acid Level 1.75 MMOL/L (0.50-2.00) Progress/Results/Core Measures Suspected Sepsis SIRS Temperature: Pulse: 68 Respiratory Rate: 18 Laboratory Tests 12/12/21 18:29: White Blood Count 9.7 Blood Pressure 142 /75 Mean: 105 12/12/21 18:29: Lactic Acid Level 2.15*H 12/12/21 21:37: Lactic Acid Level 1.75 Laboratory Tests 12/12/21 18:29: Creatinine 0.77, INR Comment 2.1H, Platelet Count 196, Total Bilirubin 0.6 Results/Orders Lab Results Laboratory Tests Test 12/12/21 18:29 12/12/21 18:55 12/12/21 21:37 Range/Units White Blood Count 9.7 4.3-11.0 10^3/uL Red Blood Count 4.58 4.30-5.52 10^6/uL Hemoglobin 12.7 L 13.3-17.7 g/dL Hematocrit 38 L 40-54 % Mean Corpuscular Volume 83 80-99 fL Mean Corpuscular Hemoglobin 28 25-34 pg Mean Corpuscular Hemoglobin Concent 34 32-36 g/dL Red Cell Distribution Width 17.1 H 10.0-14.5 % Platelet Count 196 130-400 10^3/uL Mean Platelet Volume 9.7 9.0-12.2 fL Immature Granulocyte % (Auto) 0 % Neutrophils (%) (Auto) 80 H 42-75 % Lymphocytes (%) (Auto) 13 12-44 % Monocytes (%) (Auto) 6 0-12 % Eosinophils (%) (Auto) 1 0-10 % Basophils (%) (Auto) 0 0-10 % Neutrophils # (Auto) 7.7 1.8-7.8 10^3/uL Lymphocytes # (Auto) 1.2 1.0-4.0 10^3/uL Monocytes # (Auto) 0.6 0.0-1.0 10^3/uL Eosinophils # (Auto) 0.1 0.0-0.3 10^3/uL Basophils # (Auto) 0.0 0.0-0.1 10^3/uL Immature Granulocyte # (Auto) 0.0 0.0-0.1 10^3/uL Prothrombin Time 24.1 H 12.2-14.7 SEC INR Comment 2.1 H 0.8-1.4 Activated Partial Thromboplast Time 45 H 24-35 SEC Sodium Level 132 L 135-145 MMOL/L Potassium Level 3.4 L 3.6-5.0 MMOL/L Chloride Level 93 L 98-107 MMOL/L Carbon Dioxide Level 27 21-32 MMOL/L Anion Gap 12 5-14 MMOL/L Blood Urea Nitrogen 6 L 7-18 MG/DL Creatinine 0.77 0.60-1.30 MG/DL Estimat Glomerular Filtration Rate 103 BUN/Creatinine Ratio 8 Glucose Level 114 H 70-105 MG/DL Lactic Acid Level 2.15 *H 1.75 0.50-2.00 MMOL/L Calcium Level 9.5 8.5-10.1 MG/DL Corrected Calcium 8.5-10.1 MG/DL Total Bilirubin 0.6 0.1-1.0 MG/DL Aspartate Amino Transf (AST/SGOT) 22 5-34 U/L Alanine Aminotransferase (ALT/SGPT) 13 0-55 U/L Alkaline Phosphatase 111 40-136 U/L Troponin I < 0.30 <0.30 NG/ML C-Reactive Protein 0.42 <0.50 MG/DL Pro-B-Type Natriuretic Peptide 1730.0 H <75.0 PG/ML Total Protein 8.2 6.4-8.2 GM/DL Albumin 4.6 H 3.2-4.5 GM/DL Influenza Type A Antigen NEGATIVE NEGATIVE Influenza Type B Antigen NEGATIVE NEGATIVE SARS-CoV-2 RNA (RT-PCR) Not Detected Not Detecte Procalcitonin 0.09 <0.10 NG/ML My Orders Orders - RODERICK MAKI MD Albuterol/Ipra Inhalation Soln (Duoneb I (12/12/21 18:25) Cbc With Automated Diff (12/12/21 18:29) Comprehensive Metabolic Panel (12/12/21 18:29) Blood Culture (12/12/21 18:29) Sputum Culture (12/12/21 18:29) Urinalysis (12/12/21 18:29) Urine Culture (12/12/21 18:29) Protime With Inr (12/12/21 18:29) Partial Thromboplastin Time (12/12/21 18:29) Chest 1 View Ap/Pa Only (12/12/21 18:29) Ed Iv/Invasive Line Start (12/12/21 18:29) Troponin I Jw (12/12/21 18:29) Vital Signs Adult Sepsis Patie Q15M (12/12/21 18:29) O2 (12/12/21 18:29) Remove Rings In Anticipation O (12/12/21 18:29) Lactic Acid Analyzer (12/12/21 18:29) Influenza A & B Antigens (12/12/21 18:29) Probnp Fs (12/12/21 18:29) Crp Fs (12/12/21 18:29) Albuterol/Ipra Inhalation Soln (Duoneb I (12/12/21 18:30) Svn Small Volume Nebulizer (12/12/21 18:29) Albuterol Pre-Mix Nebs (Rt) (Proventil (12/12/21 18:40) Svn Small Volume Nebulizer (12/12/21 18:40) Covid 19 Inhouse Test (12/12/21 18:54) Cefepime Injection (Maxipime Injection) (12/12/21 19:45) Ed Admission (Communication) (12/12/21 19:49) Medications Given in ED Current Medications Medications Dose Ordered Sig/Lali Route Start Time Stop Time Status Last Admin Dose Admin Albuterol/ Ipratropium 3 ml ONCE ONCE INH 12/12/21 18:30 12/12/21 18:32 DC 12/12/21 18:30 3 ML Cefepime HCl 1000 mg/Sodium Chloride 50 ml @ 100 mls/hr ONCE ONCE IV 12/12/21 19:45 12/12/21 20:14 DC 12/12/21 19:43 100 MLS/HR Vital Signs/I&O 12/12/21 12/12/21 12/12/21 12/12/21 18:20 18:33 18:56 19:17 Temp 37.2 Pulse 68 90 90 Resp 18 18 20 B/P (MAP) 142/75 (97) 123/62 126/95 Pulse Ox 67 90 89 91 O2 Delivery Room Air OxyMask Non Rebreather Non Rebreather O2 Flow Rate 12.00 15.00 15.00 FiO2 90 12/12/21 12/12/21 12/12/21 12/12/21 19:51 21:00 21:09 21:12 Temp 38.7 Pulse 96 101 94 101 Resp 22 21 18 B/P (MAP) 145/70 140/84 140/84 Pulse Ox 94 94 91 O2 Delivery Non Rebreather High Flow N/C High Flow N/C O2 Flow Rate 15.00 7.00 7.00 12/12/21 12/12/21 12/12/21 12/12/21 21:15 21:18 21:30 21:45 Pulse 102 97 86 Resp 21 24 33 B/P (MAP) 129/104 133/87 133/88 Pulse Ox 94 93 95 O2 Delivery High Flow N/C High Flow N/C High Flow N/C High Flow N/C O2 Flow Rate 7.00 7.00 7.00 7.00 12/12/21 12/12/21 12/12/21 22:12 22:15 22:45 Temp 38.7 Pulse 90 90 Resp 31 31 B/P (MAP) 131/81 144/89 Pulse Ox 95 97 O2 Delivery High Flow N/C High Flow N/C O2 Flow Rate 7.00 7.00 Capillary Refill : Less Than 3 Seconds Blood Pressure Mean: 105 Progress Note : Progress Note Seen and evaluated. Initiated on nasal cannula at 6 L and changed to oxime mask at 10 L. DuoNeb initiated which did help some. Albuterol nebulizer x3 initiated which is improving symptoms more. Sepsis protocol was initiated. Initial look at chest x-ray does show large right lower lobe pneumonia. We are pending lactic acid. 192: Lactic acid is slightly elevated and BNP is slightly elevated as well. While there is some evidence for heart failure, I do believe this is pneumonia related for symptoms including hypoxia. We would still want to be judicious with fluids. Patient does have of normal blood pressure despite being in extremitas. We will initiate cefepime 1 g IV for the pneumonia in the setting of likely COPD due to long-term smoking. Patient will require admission. 1948: I did discuss the case with Dr. Tobar and he accepts patient for admission, inpatient status to the ICU. Findings discussed with patient and family who agree with plan. O2 sat remains 93% with heart rate 94-98. He is therapeutic on his warfarin. Patient will go by EMS. ECG Initial ECG Impression Date: Dec 12, 2021 Initial ECG Impression Time: 18:37 Initial ECG Rate: 75 Initial ECG Rhythm: A Fib/Flutter Initial ECG Impression: Atrial Fibrillation Initial ECG Comparisson: Unchanged (04/11/2020) Comment Atrial fibrillation with incomplete right bundle branch block. Normal axis. No evidence of ST elevation [place]. Artifact noted. Interpreted by me. Diagnostic Imaging Diagonstic Imaging: Xray Plain Films/CT/US/NM/MRI: chest Comments [facility] [place], [place] NAME: JAVI SESAY [facility] REC#: [id number] PT STATUS: REG ER : 1960 PHYSICIAN: RODERICK MAKI MD ADMIT DATE: 12/12/21/ER FS Draft Date of Exam:12/12/21 CHEST 1 VIEW AP/PA ONLY INDICATION: Cough, shortness of breath, hypoxia. TECHNIQUE: Single view chest 6:39 PM. CORRELATION STUDY: 04/11/2020 FINDINGS: Patchy infiltrate right lung base compatible with right basilar pneumonia. Left lung clear. Heart size enlarged. Mediastinum mildly prominent, likely accentuated by technique. IMPRESSION: 1. Right basilar pneumonia. Follow-up imaging to resolution is recommended. Dictated on workstation # [id number] Dict: [id number] Trans: 12/12/219 [facility] [id number] Interpreted by: RAMONA ALICEA DO Electronically signed by: Departure Communication (Admissions) Time/Spoke to Admitting Phy: 19:49 Impression Primary Impression: RLL pneumonia Qualified Codes: J18.9 - Pneumonia, unspecified organism Additional Impression: Hypoxia Disposition: 30 STILL A PATIENT Condition: Stable Admissions Decision to Admit Reason: Admit from ER (General) Decision to Admit/Date: Dec 12, 2021 Time/Decision to Admit Time: 19:49 Departure-Patient Inst. Referrals: YAHAIRA HENRIQUEZ MD (PCP/Family) Primary Care Physician RODERICK MAKI MD Dec 12, 2021 19:24
[2021-12-12 19:45] LABS: INR 2.1 (0.8-1.4); PROTHROMBIN TIME PATIENT 24.1 SEC (12.2-14.7)
[2021-12-12] MEDS ORDERED: CEFEPIME INJECTION 1,000 MG in NS (IVPB) 50 ML IV ONE (19:45)
[2021-12-12] MEDS ORDERED: diphenhydrAMINE 25 MG TAB (BENADRYL) PO PRN (21:15)
[2021-12-12] MEDS ORDERED: MELATONIN 3 MG TABLET PO PRN (21:15)
[2021-12-12] MEDS ORDERED: ONDANSETRON 4 MG/2 ML (SDV) Z0FRAN IV PRN (21:15)
[2021-12-12] MEDS ORDERED: LACTATED RINGERS 1,000 ML IV SCH (21:15)
[2021-12-12] MEDS ORDERED: ENOXAPARIN 40 MG/0.4 ML (LOVENOX) SYR SC SCH (21:15)
[2021-12-12] MEDS ORDERED: ANTACID SUSP 30 ML UDC (MYLANTA) PO PRN (21:15)
[2021-12-12] MEDS ORDERED: ONDANSETRON 4 MG (ZOFRAN) ORAL DISSOLVE TAB PO PRN (21:15)
[2021-12-12] MEDS ORDERED: polyethylene glycoL POWDER 17 GM (MIRALAX) PACK PO PRN (21:15)
[2021-12-12] MEDS: ACETAMINOPHEN 325 MG TABLET PO PRN (22:12)
--- NOTE | 2021-12-12 22:39 | Tele-ICU Progress Note ---
Progress Note TeleICU Pt evaluation by videocamera, reviewed available diagnostics, charting S: 61 yo man admitted through ED with hypoxemic respiratory distress sats in 60s, hx cough and chills. PMHx COVID Jul 2021, 1 dose J&J vaccine prior to COVID infection, atrial fibrillation -on warfarin, digoxin, amlodipinie, omeprazole, metoprolol , candesartan Current cigarette smoker Objective: Current VS on 6-7 lpm by NC sats 94% BP 140/84 HR 94 in atrial fibrillation Awake and conversant .Nursing reports coarse breath sounds. Labs: LA 2.15, 1.75 Na 132 K 3.4 Cl 93 Bicarb 27 BNP 1730 Trop 111 WBCs 9700 Hgb 12.7 Plts 196,000 PT 24.1 INR 2.1 Creat 0.77 CRP 0.42 FLU A, B neg CXR: IMPRESSION: 1. Right basilar pneumonia. Follow-up imaging to resolution is recommended. Assessment: R basilar pneumonia, Atrial fibrillation with controlled ventricular rate, CHF Plan: In ED, Albuterol nebs, O2 started , cultures obtained. COVID and Procal are pending. Pt was given magnesium empirically, KCL replaced, Cefepime initiated. Primary service ordered diet for AM and labs, I added INR and digoxin level. I have decreased IVF to 40 mls/ hr. Initiated Duonebs q.6 hrs. Patient is chronically on warfarin- placed order for Pharmacy to dose in AM. Assess for cardiac meds in AM. D/W nursing. Focused Exam Lactate Level 12/12/21 18:29: Lactic Acid Level 2.15*H 12/12/21 21:37: Lactic Acid Level 1.75 Height, Weight, BMI Height: 5'10.00" Weight: 166lbs. 4.0oz. 75.052460xp; 26.00 BMI Method: Lactic Acid Level Laboratory Tests Test 12/12/21 21:37 Lactic Acid Level 1.75 MMOL/L (0.50-2.00) PANKAJ BRAXTON DO Dec 12, 2021 22:39
[2021-12-13] MEDS ORDERED: NICOTINE 7 MG (NICODERM) PATCH TD ONE (02:15)
[2021-12-13] MEDS: RT-ALBUTEROL/IPRATROPIUM 3 ML (DUONEB) VIAL INH SCH ×4 (03:54→22:09)
[2021-12-13 05:20] LABS: BASOPHILS % (AUTO) 0 % (0-10); EOSINOPHILS % (AUTO) 0 % (0-10); HEMATOCRIT 34 % (40-54); HEMOGLOBIN 11.2 g/dL (13.3-17.7); LYMPHOCYTES # (AUTO) 0.9 10^3/uL (1.0-4.0); LYMPHOCYTES % (AUTO) 7 % (12-44); MEAN CORPUSCULAR HEMOGLOBIN 28 pg (25-34); MEAN CORPUSCULAR HGB CONC 33 g/dL (32-36); MEAN CORPUSCULAR VOLUME 84 fL (80-99); MEAN PLATELET VOLUME 10.2 fL (9.0-12.2); MONOCYTES # (AUTO) 0.8 10^3/uL (0.0-1.0); MONOCYTES % (AUTO) 6 % (0-12); NEUTROPHILS # (AUTO) 10.5 10^3/uL (1.8-7.8); NEUTROPHILS % (AUTO) 85 % (42-75); PLATELET COUNT 148 10^3/uL (130-400); WHITE BLOOD COUNT 12.2 10^3/uL (4.3-11.0)
[2021-12-13 05:29] LABS: INR 2.2 (0.8-1.4); PROTHROMBIN TIME PATIENT 24.7 SEC (12.2-14.7)
[2021-12-13 05:33] LABS: POTASSIUM 4.1 MMOL/L (3.6-5.0)
[2021-12-13 05:35] LABS: CALCIUM 8.6 MG/DL (8.5-10.1)
[2021-12-13 05:39] LABS: CREATININE SERUM 0.76 MG/DL (0.60-1.30)
[2021-12-13 05:41] LABS: MAGNESIUM 1.5 MG/DL (1.6-2.4)
[2021-12-13] MEDS: CEFEPIME INJECTION 1,000 MG in NS (IVPB) 50 ML IV SCH ×4 (06:46→23:09)
[2021-12-13] MEDS: KCL 20 MEQ TAB (K-DUR) PO SCH (07:00)
[2021-12-13] MEDS: MAGNESIUM 1 GM/100 ML IVPB 100 ML IV SCH ×3 (07:00→09:55)
[2021-12-13] MEDS: POTASSIUM CL 10MEQ/50ML IVPB 50 ML IV SCH (07:00)
[2021-12-13] MEDS ORDERED: warFARin 3 MG (COUMADIN) TAB PO ONE (08:00)
[2021-12-13] MEDS: ACETAMINOPHEN 325 MG TABLET PO PRN ×3 (08:10→23:45)
--- NOTE | 2021-12-13 08:12 | Tele-ICU Progress Note ---
Progress Note video rounds completed 61 y/o male who had Covid PNa in Jul 2021 Prersents to ED now with hypoxemia and SOB CXR shows PNA and cefepime started Has hx of a fib on coumadin Continues to smoke cigarettes PE this am Conversing with nursing staff In good spirits Pulse: 87 O2 sat 97% on O2 BP 130/86 PLAN: continue antibiotics for PNA and O2 Laboratory Tests 12/12/21 18:29 12/13/21 04:46 Labs Labs Laboratory Tests 12/12/21 18:29: White Blood Count 9.7, Red Blood Count 4.58, Hemoglobin 12.7L, Hematocrit 38L, Mean Corpuscular Volume 83, Mean Corpuscular Hemoglobin 28, Mean Corpuscular Hemoglobin Concent 34, Red Cell Distribution Width 17.1H, Platelet Count 196, Mean Platelet Volume 9.7, Immature Granulocyte % (Auto) 0, Neutrophils (%) (Auto) 80H, Lymphocytes (%) (Auto) 13, Monocytes (%) (Auto) 6, Eosinophils (%) (Auto) 1, Basophils (%) (Auto) 0, Neutrophils # (Auto) 7.7, Lymphocytes # (Auto) 1.2, Monocytes # (Auto) 0.6, Eosinophils # (Auto) 0.1, Basophils # (Auto) 0.0, Immature Granulocyte # (Auto) 0.0, Prothrombin Time 24.1H, INR Comment 2.1H, Activated Partial Thromboplast Time 45H, Sodium Level 132L, Potassium Level 3.4L , Chloride Level 93L, Carbon Dioxide Level 27, Anion Gap 12, Blood Urea Nitrogen 6L, Creatinine 0.77, Estimat Glomerular Filtration Rate 103, BUN/Creatinine Ratio 8, Glucose Level 114H, Lactic Acid Level 2.15*H, Calcium Level 9.5, Corrected Calcium , Total Bilirubin 0.6, Aspartate Amino Transf (AST/SGOT) 22, Alanine Aminotransferase (ALT/SGPT) 13, Alkaline Phosphatase 111, Troponin I < 0.30, C-Reactive Protein 0.42, Pro-B-Type Natriuretic Peptide 1730.0H, Total Protein 8.2, Albumin 4.6H 12/12/21 18:55: Influenza Type A Antigen NEGATIVE, Influenza Type B Antigen NEGATIVE, SARS-CoV-2 RNA (RT-PCR) Not Detected 12/12/21 21:37: Lactic Acid Level 1.75, Procalcitonin 0.09 12/13/21 04:46: White Blood Count 12.2H, Red Blood Count 4.07L, Hemoglobin 11.2L, Hematocrit 34L , Mean Corpuscular Volume 84, Mean Corpuscular Hemoglobin 28, Mean Corpuscular Hemoglobin Concent 33, Red Cell Distribution Width 17.1H, Platelet Count 148, Mean Platelet Volume 10.2, Immature Granulocyte % (Auto) 1, Neutrophils (%) (Auto) 85H, Lymphocytes (%) (Auto) 7L, Monocytes (%) (Auto) 6, Eosinophils (%) (Auto) 0, Basophils (%) (Auto) 0, Neutrophils # (Auto) 10.5H, Lymphocytes # (Auto) 0.9L, Monocytes # (Auto) 0.8, Eosinophils # (Auto) 0.0, Basophils # (Auto) 0.0, Immature Granulocyte # (Auto) 0.1, Prothrombin Time 24.7H, INR Comment 2.2H, Sodium Level 137, Potassium Level 4.1, Chloride Level 97L, Carbon Dioxide Level 26, Anion Gap 14, Blood Urea Nitrogen 6L, Creatinine 0.76, Estimat Glomerular Filtration Rate 104, BUN/Creatinine Ratio 8, Glucose Level 113H, Akira cium Level 8.6, Magnesium Level 1.5L, Digoxin Level 1.05 Focused Exam Lactate Level 12/12/21 18:29: Lactic Acid Level 2.15*H 12/12/21 21:37: Lactic Acid Level 1.75 Height, Weight, BMI Height: 5'10.00" Weight: 166lbs. 4.0oz. 75.563140xo; 25.36 BMI Method: VANESSA WEINBERG MD Dec 13, 2021 08:12
[2021-12-13] MEDS ORDERED: HYDROcodone/APAP 7.5 MG/325 MG (LORTAB, LORCET PLUS) TABLET PO SCH (10:15)
[2021-12-13] MEDS ORDERED: warFARin 2.5 MG (COUMADIN) TAB PO ONE (10:15)
[2021-12-13] MEDS: NICOTINE 14 MG (NICODERM) PATCH TD SCH (10:52)
[2021-12-13] MEDS: PANTOPRAZOLE 20 MG TABLET (PROTONIX) PO SCH (10:53)
[2021-12-13] MEDS: meTOprolol SUCCINATE 100 MG (TOPROL XL) TAB PO SCH ×2 (10:53→19:57)
[2021-12-13] MEDS ORDERED: TAMSULOSIN 0.4 MG (FLOMAX) CAP PO SCH (18:00)
[2021-12-13] MEDS ORDERED: warFARin 2.5 MG (COUMADIN) TAB PO SCH (18:00)
--- NOTE | 2021-12-13 20:43 | History & Physical-Hospitalist ---
History of Present Illness HPI/Chief Complaint Eric Aguilar is a 61 year old male with PMH HTN, AFib, BPH, who presented with shortness of breath. He has had allergy symptoms for the past week. He reports cough. He reports chest congestion. He did not have any fevers until yesterday. He denies nausea, vomiting, abdominal pain, or diarrhea. He uses chewing tobacco . He does not smoke cigarettes, drink alcohol, or use illicit drugs. Source: patient Exam Limitations: no limitations Date Seen 12/13/21 Time Seen by a Provider: 09:45 Attending Physician Fidel Hancock MD PCP Francisco Pierre MD Referring Physician Date of Admission Dec 12, 2021 at 21:07 Home Medications & Allergies Home Medications Reviewed patient Home Medication Reconciliation performed by pharmacy medication reconciliations support technician and/or nursing. Patients Allergies have been reviewed. Allergies Allergies Coded Allergies oxycodone (Verified Allergy, Severe, BECAME SUICIDAL, 11/28/18) Past Aqjznju-Ynjnpt-Fhoayn Hx Patient Social History Tobacco Use?: No Smoking Status: Never a Smoker Smokeless type used: Chew Smokeless Tobacco Frequency: Current Everyday User Use of E-Cig and/or Vaping dev: No Substance use?: No Alcohol Use?: Yes Alcohol type: Beer Alcohol Frequency: Once in a while Additional Alcohol Comments: 6 PACK A NIGHT Pt feels they are or have been: No Immunizations Up To Date First/Initial COVID19 Vaccinat: 2020 Seasonal Allergies Seasonal Allergies: Yes Current Status Advance Directives: Yes Communicates: Verbally Primary Language: Jordanian Preferred Spoken Language: Jordanian Is interpretation needed?: No Sensory deficits: Vision impairment, Hearing impairment Implanted or Applied Medical D: None Past Medical History Surgeries: Gallbladder Atrial Fibrillation, Cardiomyopathy, Hypertension TIA Sexually Transmitted Disease: No HIV/AIDS: No Gastroesophageal Reflux Loss of Vision: Bilateral Hearing Impairment: Denies Blood Disorders: No Adverse Reaction/Blood Tranf: No (N/A) Family Medical History Reviewed Nursing Family Hx No Pertinent Family Hx Review of Systems Constitutional: fever EENTM: no symptoms reported Respiratory: cough, short of breath Cardiovascular: no symptoms reported Gastrointestinal: no symptoms reported Genitourinary: no symptoms reported Musculoskeletal: no symptoms reported Skin: no symptoms reported Psychiatric/Neurological: No Symptoms Reported Physical Exam Physical Exam Vital Signs Vital Signs - First Documented 4/29/22 4/29/22 18:20 18:33 Temp 37.2 Pulse 68 Resp 18 B/P (MAP) 142/75 (97) Pulse Ox 67 O2 Delivery Room Air O2 Flow Rate 12.00 FiO2 90 Capillary Refill : Less Than 3 Seconds Height, Weight, BMI Height: 5'10.00" Weight: 166lbs. 4.0oz. 75.626794cg; 25.36 BMI Method: General Appearance: No Apparent Distress, WD/WN HEENT: PERRL/EOMI, Pharynx Normal Neck: Normal Inspection, Supple Respiratory: No Respiratory Distress, Decreased Breath Sounds Cardiovascular: Regular Rate, Rhythm, No Edema, No Murmur Gastrointestinal: Normal Bowel Sounds, Non Tender, Soft Extremity: Normal Inspection, Non Tender, No Pedal Edema Neurologic/Psychiatric: Alert, Oriented x3, No Motor/Sensory Deficits, Normal Mood/Affect Skin: Normal Color, Warm/Dry Results Results/Procedures Labs Laboratory Tests 12/12/21 18:29 12/13/21 04:46 Patient resulted labs reviewed. Imaging: Reviewed Imaging Report Assessment/Plan Admission Diagnosis Sepsis due to RLL pneumonia Admission Status: Inpatient Order (span 2 midnights) Reason for Inpatient Admission: IV antibiotics Respiratory failure Assessment and Plan Severe sepsis RLL pneumonia Acute respiratory failure with hypoxia Lactic acidosis SIRS+ with fever and leukocytosis Lactic acid elevated CXR with RLL pneumonia IV fluids IV Cefepime AFib HTN BPH Continue home meds INR therapeutic DVT prophylaxis: Lovenox Diagnosis/Problems Diagnosis/Problems (1) Severe sepsis Status: Acute (2) RLL pneumonia Status: Acute Qualifiers: Pneumonia type: due to unspecified organism Qualified Codes: J18.9 - Pneumonia, unspecified organism (3) Acute respiratory failure with hypoxia Status: Acute (4) Lactic acidosis Status: Acute (5) HTN (hypertension) Status: Chronic (6) Afib Status: Chronic (7) Anticoagulated on Coumadin Status: Chronic (8) BPH (benign prostatic hyperplasia) Status: Chronic (9) Tobacco abuse Status: Chronic FIDEL HANCOCK MD Dec 13, 2021 20:43
[2021-12-14] MEDS: RT-ALBUTEROL/IPRATROPIUM 3 ML (DUONEB) VIAL INH SCH ×2 (02:49→06:59)
[2021-12-14 05:46] LABS: POTASSIUM 3.5 MMOL/L (3.6-5.0)
[2021-12-14 05:47] LABS: CALCIUM 8.7 MG/DL (8.5-10.1)
[2021-12-14] MEDS: CEFEPIME INJECTION 1,000 MG in NS (IVPB) 50 ML IV SCH (05:47)
[2021-12-14 05:51] LABS: CREATININE SERUM 0.73 MG/DL (0.60-1.30)
[2021-12-14 05:54] LABS: MAGNESIUM 1.9 MG/DL (1.6-2.4)
[2021-12-14] MEDS: POTASSIUM CL 10MEQ/50ML IVPB 50 ML IV SCH (05:57)
[2021-12-14] MEDS: MAGNESIUM 1 GM/100 ML IVPB 100 ML IV SCH (05:58)
[2021-12-14] MEDS: KCL 20 MEQ TAB (K-DUR) PO SCH (06:02)
[2021-12-14] MEDS: ACETAMINOPHEN 325 MG TABLET PO PRN (06:25)
[2021-12-14] MEDS: meTOprolol SUCCINATE 100 MG (TOPROL XL) TAB PO SCH (08:21)
[2021-12-14] MEDS: NICOTINE 14 MG (NICODERM) PATCH TD SCH (08:21)
[2021-12-14] MEDS: PANTOPRAZOLE 20 MG TABLET (PROTONIX) PO SCH (08:21)
[2021-12-14] MEDS ORDERED: amLODIPine 10 MG (NORVASC) TAB PO SCH (09:00)
[2021-12-14] MEDS ORDERED: DIGOXIN 0.25 MG (LANOXIN) TAB PO SCH (09:00)
[2021-12-14] MEDS ORDERED: KCL 20 MEQ TAB (K-DUR) PO ONE (09:00)
[2021-12-14] MEDS ORDERED: CEFD300C3 PO (10:47)
[2021-12-14 11:00] VITALS: BP 125/87
--- NOTE | 2021-12-14 22:53 | Discharge Summary ---
Discharge Summary Hospital Course Problems/Dx: (1) Severe sepsis Status: Acute (2) RLL pneumonia Status: Acute Qualifiers: Qualified Codes: J18.9 - Pneumonia, unspecified organism (3) Acute respiratory failure with hypoxia Status: Acute (4) Lactic acidosis Status: Acute (5) HTN (hypertension) Status: Chronic (6) Afib Status: Chronic (7) Anticoagulated on Coumadin Status: Chronic (8) BPH (benign prostatic hyperplasia) Status: Chronic (9) Tobacco abuse Status: Chronic Hospital Course Date of Admission: Dec 12, 2021 at 21:07 Admission Diagnosis : Family Physician/Provider: Yahaira Pierre MD Date of Discharge: 12/14/21 Discharge Diagnosis: [ ] Hospital Course: [ ] Labs and Pending Lab Test: Laboratory Tests 12/14/21 05:05: Sodium Level 134L, Potassium Level 3.5L, Chloride Level 96L, Carbon Dioxide Level 26, Anion Gap 12, Blood Urea Nitrogen 8, Creatinine 0.73, Estimat Glom erular Filtration Rate 105, BUN/Creatinine Ratio 11, Glucose Level 104, Calcium Level 8.7, Magnesium Level 1.9 Microbiology 12/12/21 MRSA Screen - Final, Complete MRSA not isolated 12/12/21 Blood Culture - Preliminary, Resulted No growth Home Meds Active Cefdinir 300 Mg Capsule 300 Mg PO BID 5 Days HYDROcodone/APAP 7.5/325 TAB (Acetaminophen/Hydrocodone Bitart) 1 Each Tablet 1 Tab PO Q4H Reported Flomax (Tamsulosin HCl) 0.4 Mg Cap 0.4 Mg PO DAILY Warfarin Sodium 1 Mg Tablet 1 Mg PO DAILY Warfarin Sodium 2.5 Mg Tablet 2.5 Mg PO DAILY Omeprazole 20 Mg Tablet.dr 20 Mg PO DAILY Amlodipine Besylate 10 Mg Tablet 10 Mg PO DAILY Metoprolol Succinate 200 Mg Tab.er.24h 200 Mg PO BID Digoxin 250 Mcg Tablet 250 Mcg PO DAILY Atacand (Candesartan Cilexetil) 32 Mg Tablet 32 Mg PO DAILY Discharge Planning: >30 minutes discharge planning Discharge Instructions Discharge Diet: No Restrictions Activity as Tolerated: Yes Discharge Physical Examination Vital Signs Vital Signs Date Time Temp Pulse Resp B/P (MAP) Pulse Ox O2 Delivery O2 Flow Rate FiO2 12/14/21 11:00 36.5 75 20 125/87 96 Room Air 90 12/14/21 07:01 2.50 General Appearance: No Apparent Distress, WD/WN Respiratory: Lungs Clear, No Respiratory Distress Cardiovascular: Regular Rate, Rhythm, No Murmur Gastrointestinal: Normal Bowel Sounds, Soft Extremity: Normal Inspection, No Pedal Edema Skin: Normal Color, Warm/Dry Neurologic/Psychiatric: Alert, Normal Mood/Affect Allergies: Coded Allergies: oxycodone (Verified Allergy, Severe, BECAME SUICIDAL, 11/28/18) Copy Copies To 1: YAHAIRA PIERRE MD Discharge Summary Date of Admission Dec 12, 2021 at 21:07 Date of Discharge December 14, 2021 at 11:15 Discharge Date: December 14, 2021 Discharge Time: 11:15 Admission Diagnosis Sepsis due to RLL pneumonia Discharge Diagnosis Severe sepsis RLL pneumonia Acute respiratory failure with hypoxia Lactic acidosis (1) Severe sepsis Status: Acute (2) RLL pneumonia Status: Acute Qualifiers: Qualified Codes: J18.9 - Pneumonia, unspecified organism (3) Acute respiratory failure with hypoxia Status: Acute (4) Lactic acidosis Status: Acute (5) HTN (hypertension) Status: Chronic (6) Afib Status: Chronic (7) Anticoagulated on Coumadin Status: Chronic (8) BPH (benign prostatic hyperplasia) Status: Chronic (9) Tobacco abuse Status: Chronic FIDEL HANCOCK MD December 14, 2021 22:52
== END 2021-12-14 11:15 | disposition home or self-care (01) | DRG 871 ==
LOC: EDUNIT# 18:19 → ER FS 18:20 → ICU 21:07 → 4TH 12-13 13:39
PROVIDERS: ADMIT Internal Medicine; ATTEND Internal Medicine
DX: A41.9 Sepsis, unspecified organism (principal); J18.9 Pneumonia, unspecified organism; J96.01 Acute respiratory failure with hypoxia; E87.2 Acidosis; I48.20 Chronic atrial fibrillation, unspecified; I42.9 Cardiomyopathy, unspecified; R65.20 Severe sepsis without septic shock; N40.0 Benign prostatic hyperplasia without lower urinary tract symptoms; F17.220 Nicotine dependence, chewing tobacco, uncomplicated; H54.7 Unspecified visual loss; H91.90 Unspecified hearing loss, unspecified ear; I11.0 Hypertensive heart disease with heart failure; I50.9 Heart failure, unspecified; K21.9 Gastro-esophageal reflux disease without esophagitis; Z86.73 Personal history of transient ischemic attack (TIA), and cerebral infarction without residual deficits; Z88.5 Allergy status to narcotic agent; Z79.01 Long term (current) use of anticoagulants; Z79.899 Other long term (current) drug therapy; Z86.16 Personal history of COVID-19; Z20.822 Contact with and (suspected) exposure to COVID-19
CPT/HCPCS: 36415; 71045; 80048; 80053; 80162; 83605; 83735; 83880; 84145; 84484; 85025; 85610; 85730; 86141; 87040; 87070; 87081; 87205; 87636; 87804; 93005; 94640

== ENCOUNTER 2022-06-08 02:06 | Emergency (ER) | payer BC ==
[~2022-06-08] VITALS: Ht 177.8 cm; Wt 77.8 kg
[~2022-06-08 02:06] MED LIST changes: +CEFD300C3 PO
[2022-06-08] MEDS ORDERED: RT-ALBUTEROL/IPRATROPIUM 3 ML (DUONEB) VIAL INH STA (02:21)
--- NOTE | 2022-06-08 02:34 | ED Cough/URI ---
General Chief Complaint: Respiratory Problems Stated Complaint: SOB Source: patient, old records History of Present Illness Date Seen by Provider: Jun 08, 2022 Time Seen by Provider: 02:09 Initial Comments 61-year-old male presenting with complaints of increasing cough and shortness of breath. He states that he has been more short of breath ever since he had COVID a year ago. He has been coughing more in the last month. He states that overnight he was having trouble breathing and could not sleep so he had checked his oxygen level at home and it was 88%. They came here to the emergency department to be seen. He states that he has not followed up with Dr. Henriquez about any of his breathing issues or seeing his primary care provider for any of this. He denies having fever or chills. He has had increased nasal congestion and drainage. He denies any definite ill with contact currently. He is coughing up thick white sputum. He denies having any inhalers at home for his breathing. Severity/Quality: moderate, productive cough (Thick white sputum) Prior Episodes/Possible Cause: frequent episodes, chronic episodes (Ever since he had COVID a year ago he has been having more shortness of breath and cough) Modifying Factors: Worse With Activity Associated Symptoms: cough, nasal congestion, shortness of breath Allergies and Home Medications Allergies Coded Allergies: oxycodone (Verified Allergy, Severe, BECAME SUICIDAL, 11/28/18) Patient Home Medication List Home Medication List Reviewed: Yes Amlodipine Besylate (Amlodipine Besylate) 10 Mg Tablet, 10 MG PO DAILY, (Reported) Entered as Reported by: KEVIN CARBALLO on 11/28/18 1152 Candesartan Cilexetil (Atacand) 32 Mg Tablet, 32 MG PO DAILY, (Reported) Entered as Reported by: KEVIN CARBALLO on 11/28/18 1152 Cefdinir (Cefdinir) 300 Mg Capsule, 300 MG PO BID Prescribed by: FIDEL HANCOCK on 12/14/21 1047 Digoxin (Digoxin) 250 Mcg Tablet, 250 MCG PO DAILY, (Reported) Entered as Reported by: KEVIN CARBALLO on 11/28/18 1152 Hydrocodone Bit/Acetaminophen (HYDROcodone/APAP 7.5/325 TAB) 1 Each Tablet, 1 TAB PO Q4H Prescribed by: ASHLEY GARCIA on 11/30/18 1119 Metoprolol Succinate (Metoprolol Succinate) 200 Mg Tab.er.24h, 200 MG PO BID, (Reported) Entered as Reported by: KEVIN CARBALLO on 11/28/18 1152 Omeprazole (Omeprazole) 20 Mg Tablet.dr, 20 MG PO DAILY, (Reported) Entered as Reported by: KEIVN CARBALLO on 11/28/18 1152 Tamsulosin HCl (Flomax) 0.4 Mg Cap, 0.4 MG PO DAILY, (Reported) Entered as Reported by: KEVIN CARBALLO on 11/28/18 1152 Warfarin Sodium (Warfarin Sodium) 2.5 Mg Tablet, 2.5 MG PO DAILY, (Reported) Entered as Reported by: KEVIN CARBALLO on 11/28/18 1152 Warfarin Sodium (Warfarin Sodium) 1 Mg Tablet, 1 MG PO DAILY, (Reported) Entered as Reported by: KEVIN CARBALLO on 11/28/18 1152 Review of Systems Review of Systems Constitutional: No chills, No fever EENTM: nose congestion Respiratory: cough, short of breath Cardiovascular: no symptoms reported Gastrointestinal: no symptoms reported Genitourinary: no symptoms reported Musculoskeletal: no symptoms reported Skin: no symptoms reported Psychiatric/Neurological: No Symptoms Reported Hematologic/Lymphatic: No Symptoms Reported Past Fsixaqr-Kjlqjv-Stzfnz Hx Patient Social History Tobacco Use?: No Smoking Status: Former Smoker Substance use?: No Alcohol Use?: No Pt feels they are or have been: No Immunizations Up To Date First/Initial COVID19 Vaccinat: 2020 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: [employer] Seasonal Allergies Seasonal Allergies: Yes Past Medical History Surgeries: Yes (SHOULDER, TOO INGUINAL HERNIA, CARDIAC ABLATION, ) Gallbladder Respiratory: No Cardiac: Yes Atrial Fibrillation, Cardiomyopathy, Hypertension Neurological: Yes TIA Sexually Transmitted Disease: No HIV/AIDS: No Genitourinary: No Gastrointestinal: Yes Gastroesophageal Reflux Musculoskeletal: No Endocrine: No HEENT: Yes (READING GLASSES) Loss of Vision: Bilateral Hearing Impairment: Denies Cancer: No Psychosocial: No Integumentary: No Blood Disorders: No Adverse Reaction/Blood Tranf: No (N/A) Family Medical History No Pertinent Family Hx Physical Exam Vital Signs - First Documented 06/08/22 02:09 Temp 36.6 Pulse 78 Resp 18 B/P (MAP) 129/65 (86) Pulse Ox 92 O2 Delivery Room Air Capillary Refill : Height: 5'10.00" Weight: 166lbs. 4.0oz. 75.853762jl; 26.35 BMI Method: General Appearance: WD/WN, no apparent distress HEENT: PERRL/EOMI, pharynx normal Neck: non-tender, full range of motion, supple, normal inspection Respiratory: chest non-tender, no respiratory distress, no accessory muscle use, rhonchi Cardiovascular: normal peripheral pulses, regular rate, rhythm Gastrointestinal: normal bowel sounds, non tender, soft, no pulsatile mass Extremities: normal range of motion, non-tender, normal capillary refill Neurologic/Psychiatric: alert, oriented x 3 Skin: normal color, warm/dry Progress/Results/Core Measures Suspected Sepsis SIRS Temperature: Pulse: Respiratory Rate: Blood Pressure / Mean: Results/Orders Lab Results Laboratory Tests Test 06/08/22 02:22 Range/Units Influenza Type A (RT-PCR) Not Detected Not Detecte Influenza Type B (RT-PCR) Not Detected Not Detecte SARS-CoV-2 RNA (RT-PCR) Not Detected Not Detecte My Orders Orders - PATSY ZHANG MD Chest Pa/Lat (2 View) (06/08/22 02:20) Covid 19 Inhouse Test (06/08/22 02:21) Influenza A And B By Pcr (06/08/22 02:21) Isolation Central Supply Req (06/08/22 02:21) Albuterol/Ipra Inhalation Soln (Duoneb I (06/08/22 02:21) Svn Small Volume Nebulizer (06/08/22 02:21) Albuterol Inhaler (Albuterol) (06/08/22 03:06) Vital Signs/I&O 06/08/22 06/08/22 06/08/22 02:09 02:32 03:08 Temp 36.6 36.0 Pulse 78 78 Resp 18 18 B/P (MAP) 129/65 (86) 129/65 Pulse Ox 92 92 94 O2 Delivery Room Air Room Air Room Air Capillary Refill : Progress Note #1: Progress Note Obtain chest x-ray and ordered COVID and influenza swab. Administer a DuoNeb breathing treatment to try and help with his cough and shortness of breath. Progress Note #2: Progress Note On my review and interpretation of his two-view chest x-ray he has no acute infiltrate. He has some flattening of the diaphragms consistent with possible COPD. He has some increased perihilar markings. Infiltrate from November in the right lower lobe has resolved. Oxygen and breathing improved with breathing treatment. Awaiting COVID and influenza swab results Progress Note #3: Progress Note COVID and influenza are negative. Patient was feeling much better after breathing treatment. Will order an albuterol inhaler with a spacer. Counseled and reviewed on how to use an inhaler with a spacer. Encouraged to use this 2 puffs every 4-6 hours as needed for shortness of breath and cough. Advised to use it at least before bedtime for the next few days to try and help with his breathing. Use a humidifier or vaporizer at the bedside to help with congestion and cough overnight. Consider taking Mucinex to help with loosening the congestion to get more out of his lungs. Encouraged to follow-up with primary care for possible additional testing of his lung function and to see if he needed any additional medications. At this point he did not have signs of pneumonia or pleural effusion. Will defer any antibiotics for now and encouraged treatment symptomatically for now. Diagnostic Imaging Diagonstic Imaging: Xray Plain Films/CT/US/NM/MRI: chest Comments On my review and interpretation of his two-view chest x-ray he has no acute infiltrate. He has some flattening of the diaphragms consistent with possible COPD. He has some increased perihilar markings. Infiltrate from November in the right lower lobe has resolved. Reviewed: Reviewed by Me Departure Impression Primary Impression: Upper respiratory infection with cough and congestion Additional Impression: Shortness of breath Disposition: 01 HOME, SELF-CARE Condition: Stable Departure-Patient Inst. Decision time for Depature: 03:07 Referrals: YAHAIRA HENRIQUEZ MD (PCP/Family) Primary Care Physician Patient Instructions: Cough, Adult ED, How to Use Your Metered Dose Inhaler ( Adults), How to Use a Spacer, Shortness of Breath, Adult ED, Upper Respiratory Infection ED Add. Discharge Instructions: Use the albuterol inhaler with spacer to help with your breathing. You would use 2 puffs every 4-6 hours as needed for shortness of breath. You may want to do this at least once every night before going to bed to help with your breathing. Consider using a humidifier or vaporizer at the bedside when you are sleeping to help with congestion and cough. Consider taking Mucinex [id number] to help loosen your cough and bring more sputum out of your lungs. Check back with Dr. Henriquez about possible additional lung function testing and to see if she would need any additional medicines to help with your breathing. All discharge instructions reviewed with patient and/or family. Voiced understanding. PATSY ZHANG MD Jun 08, 2022 02:34
[2022-06-08] MEDS ORDERED: RT-ALBUTEROL HFA 8.5 GM INHALER IH STA (03:06)
[2022-06-08 03:08] VITALS: BP 129/65
--- NOTE | 2022-06-08 07:20 | Diagnostic Imaging Report ---
EXAM: CHEST PA/LAT (2 VIEW) INDICATION: Shortness of air. COMPARISON: Chest radiograph 12/12/2021. FINDINGS: Normal heart size and central pulmonary vascularity. Mild atelectasis or infiltrate in the medial right lung base, improved compared to the prior. No pleural effusion or pneumothorax. No acute osseous findings. Cholecystectomy clips. IMPRESSION: Mild atelectasis or infiltrate in the right lung base which has improved compared to 12/12/2021. Dictated by: Dictated on workstation # [id number]
== END 2022-06-08 03:15 | disposition home or self-care (01) ==
LOC: EDUNIT# 02:06 → ER FS 02:09
DX: J06.9 Acute upper respiratory infection, unspecified (principal); Z87.891 Personal history of nicotine dependence; Z20.822 Contact with and (suspected) exposure to COVID-19
CPT/HCPCS: 71046; 87636; 94640